=== PATIENT | female | born 1960 | race African-American/Black ===

== ENCOUNTER 2017-04-01 15:46 | Emergency (ER) | payer OTHER ==
[~2017-04-01] VITALS: Ht 167.6 cm; Wt 69.1 kg
[~2017-04-01 15:46] MED LIST: AMLO10TA55 PO; HTN MED PO; HYDR12.54 PO; [UNRECOGNIZED DRUG - REMARK]
[2017-04-01 15:52] VITALS: BP 155/100
[2017-04-01] MEDS ORDERED: DOCU100T8 PO (16:02)
[2017-04-01] MEDS ORDERED: PERCT PO (16:02)
[2017-04-01] MEDS ORDERED: RIVA10 PO (16:02)
== END 2017-04-01 18:58 | disposition left against medical advice (07) ==
LOC: EMS 15:48
DX: K59.00 Constipation, unspecified (principal); Z53.21 Procedure and treatment not carried out due to patient leaving prior to being seen by health care provider

== ENCOUNTER 2018-08-13 15:40 | Emergency (ER) | payer OTHER ==
[~2018-08-13] VITALS: Ht 165.1 cm; Wt 60.9 kg
[~2018-08-13 15:40] MED LIST changes: +DOCU100T8 PO; +PERCT PO; +RIVA10 PO
[2018-08-13 18:10] VITALS: BP 154/98
== END 2018-08-13 18:14 | disposition home or self-care (01) ==
LOC: EMS 15:41
DX: J44.9 Chronic obstructive pulmonary disease, unspecified (principal); R22.9 Localized swelling, mass and lump, unspecified; I10 Essential (primary) hypertension; Z90.49 Acquired absence of other specified parts of digestive tract; Z79.899 Other long term (current) drug therapy; Z88.8 Allergy status to other drugs, medicaments and biological substances; Z88.2 Allergy status to sulfonamides; Z88.5 Allergy status to narcotic agent
CPT/HCPCS: 71250

== ENCOUNTER 2025-04-28 11:27 | Emergency (ER) | payer MEDICARE, OTHER ==
[~2025-04-28] VITALS: Ht 165.1 cm; Wt 61.8 kg
[~2025-04-28 11:27] MED LIST changes: +DOCU100T28 PO; -DOCU100T8 PO; -HTN MED PO; -RIVA10 PO; +RIVA10TA PO; -[UNRECOGNIZED DRUG - REMARK]
[2025-04-28 11:30] VITALS: BP 130/81; PULSE 76; RESP 18; TEMP 97.7; O2SAT 99
[2025-04-28] MEDS: IBUPROFEN 400 MG TABLET PO ONE (12:32)
== END 2025-04-28 13:01 | disposition home or self-care (01) ==
LOC: EMS 11:27
DX: T23.172A Burn of first degree of left wrist, initial encounter (principal); I10 Essential (primary) hypertension; J44.9 Chronic obstructive pulmonary disease, unspecified; F17.210 Nicotine dependence, cigarettes, uncomplicated; T31.0 Burns involving less than 10% of body surface; Z90.49 Acquired absence of other specified parts of digestive tract; Z88.5 Allergy status to narcotic agent; Z88.2 Allergy status to sulfonamides; Z79.899 Other long term (current) drug therapy; X11.8XXA Contact with other hot tap-water, initial encounter
CPT/HCPCS: 99283